=== PATIENT | male | born 1975 | race Caucasian/White ===

== ENCOUNTER 2020-06-29 03:04 | Day surgery (SDC) | payer BC, SELFPAY ==
[2020-06-23 15:41] VITALS: BMI 32.3
--- NOTE | 2020-06-29 07:22 | P.PNAN_ITS ---
Anes - Initial Pre Proc Eval Procedure: Operation Date: 06/29/20 11:15 Proposed Procedures p Esophagogastroduodenoscopy & Colonoscopy - Beltran Gibson MD Date/Time: 06/29/20 07:22 Surgeon: Beltran Gibson MD Pre Op Diagnosis: Hemorrhoids/ Melena/ Gerd/ Abdominal Pain Patient Data Age: 44 Gender: M Height: 1.68 m Weight: 91 kg Allergies Allergy/AdvReac Type Severity Reaction Status Date / Time No Known Allergies Allergy Verified 06/29/20 10:37 Home Medications Medication Instructions Recorded Confirmed Type No Home Medications 06/23/20 06/23/20 History Patient hx anesthesia problems: none Family hx anesthesia problems: none [facility] Past Medical History Medical History (Updated 06/07/20 @ 14:56 by Beltran Gibson MD) Abdominal pain GERD (gastroesophageal reflux disease) No active medical problems Surgical History Surgical History No history of previous surgery Social History Social History Smoking status: Never smoker Alcohol intake: current Drinks per week: 7 Alcohol use details: BEERS Substance use: former Substance use type: marijuana Living arrangements: with family Spiritual care concerns: No Anes - Eval Final PreProcedure Day of Procedure 06/29/20 07:22 Patient weight: obese Heart: regular rate and rhythm Lungs: clear to auscultation and normal air movement Airway: Mallampati scale class 1 Neurological: alert and oriented Last oral intake: >/= 8 hours ASA classification: III Emergent: no Anesthetic plan: proceed Anesthesia type and monitoring: general GIVS and standard monitoring Informed Consent: The patient's anesthetic plan and its attendant risks and benefits were discussed with the patient/family/POA. Questions were solicited and answers provided to the satisfaction of the patient/family/POA.
[2020-06-29 10:37] VITALS: BP 113/87; PULSE 86; RESP 18; TEMP 37.1; O2SAT 97; BMI 34.7
[2020-06-29] MEDS: LACTATED RINGERS 1,000 ML 150 ML IV CONT (10:55)
--- NOTE | 2020-06-29 11:22 | WPDHPUPDATE1 ---
History and Physical Update Update Date/Time: 06/29/20 11:22 History and Physical has been reviewed, including an updated exam of the patient. There are NO changes in the patient's condition. Risks, benefits, and alternatives have been discussed and questions answered. Patient agrees to proceed with procedure.
[2020-06-29 12:05] VITALS: BP 126/70; PULSE 80; RESP 19; O2SAT 97
[2020-06-29 12:15] VITALS: BP 144/68; PULSE 76; RESP 19; O2SAT 97
[2020-06-29 12:25] VITALS: BP 134/68; PULSE 74; RESP 20; O2SAT 98
== END 2020-06-29 12:30 | disposition home or self-care (01) ==
PROVIDERS: Visit Provider Internal Medicine Gastroenterology
PROC: 0DJ08ZZ Inspection of Upper Intestinal Tract, Via Natural or Artificial Opening Endoscopic (ICD-10-PCS; CPT 43235; principal; 2020-06-29 11:15)
DX: Z12.11 Encounter for screening for malignant neoplasm of colon (principal); D12.3 Benign neoplasm of transverse colon; K57.30 Diverticulosis of large intestine without perforation or abscess without bleeding; K29.50 Unspecified chronic gastritis without bleeding; K21.9 Gastro-esophageal reflux disease without esophagitis; E66.9 Obesity, unspecified; Z68.34 Body mass index [BMI] 34.0-34.9, adult
CPT/HCPCS: 45385; 43239; 88305; J2704; J7120